=== PATIENT | female | born 1990 | race Caucasian/White ===

== ENCOUNTER 2016-09-21 17:35 | Emergency (ER) | payer OTHER ==
[2016-09-21 18:03] VITALS: RESP 16; TEMP 98.2
[2016-09-21] MEDS ORDERED: LIDOCAINE 2% JELLY 5 ML TUBE TP ONE (18:18)
--- NOTE | 2016-09-21 18:22 | EDPHY ---
H & P Stated Complaint: hemmorhoids and black stools + dizzy Time Seen by Provider: 09/21/16 17:50 HPI/ROS: CHIEF COMPLAINT: Dizziness, black stools and hemorrhoids History by patient HISTORY OF PRESENT ILLNESS: 24-year-old woman with a history of hemorrhoids presents complaining of a painful hard lump for about 4 days with associated blood on the tissue but also concerned because yesterday she had 2 episodes of soft black stool and was feeling lightheaded and dizzy like she might pass out. She had no episodes of true syncope. She has had no associated abdominal pain or vomiting but does say she feels little bit nauseated today. She denies any chest pain or trouble breathing. She has no prior history of GI bleed. She drinks occasional alcohol. She has tried some preparation H on her hemorrhoids with minimal relief. Her symptoms of dizziness and general weakness have resolved today as have the black stools and she said she had a normal stool today. REVIEW OF SYSTEMS: As in HPI, and all other systems reviewed and are negative Source: Patient - Personal History LMP (Females 10-55): Unknown Current Tetanus Diphtheria and Acellular Pertussis (TDAP): Yes - Medical/Surgical History Hx Asthma: No Hx Chronic Respiratory Disease: No Hx Diabetes: No Hx Cardiac Disease: No Hx Renal Disease: No Hx Cirrhosis: No Hx Alcoholism: No Hx HIV/AIDS: No Hx Splenectomy or Spleen Trauma: No Other PMH: none - Family History Significant Family History: No pertinent family hx - Social History Smoking Status: Current some day smoker Alcohol Use: Occasionally - Physical Exam Exam: General Appearance: Alert, well-appearing. Eyes: Pupils equal and round no pallor or injection. ENT, Mouth: Mucous membranes moist. Respiratory: Normal, effort, There are no retractions, lungs are clear to auscultation. Cardiovascular: Regular rate and rhythm. Gastrointestinal: Abdomen is soft and nontender, no masses, bowel sounds normal. Rectal: Positive tender, thrombosed external hemorrhoid at 6:00 p.m., no stool in vault Neurological: Awake, alert and oriented x 3, no pronator drift, normal gait, no pronator drift Skin: Warm and dry, no rashes. Musculoskeletal: Neck is supple nontender. Extremities are symmetrical, full range of motion. Psychiatric: Patient has normal affect, there is no agitation. Constitutional: Initial Vital Signs Temperature (C) 36.8 C 09/21/16 17:40 Heart Rate 95 09/21/16 17:40 Respiratory Rate 16 09/21/16 17:40 Blood Pressure 129/87 H 09/21/16 17:40 O2 Sat (%) 98 09/21/16 17:40 O2 Delivery Mode Room Air Allergies/Adverse Reactions: No Known Allergies Allergy (Verified 09/21/16 18:04) Home Medications: Medication Instructions Recorded Benzocaine [Anbesol] 12 alicia MM Q4 #1 bottle 09/21/16 Medical Decision Making ED Course/Re-evaluation: 24-year-old woman presents complaining of painful thrombosed hemorrhoid as well as 2 episodes of black stools and dizziness yesterday which have now resolved. Patient is hemodynamically stable and her hemoglobin is within normal limits and there is no evidence of any ongoing GI bleeding. Patient was given topical lidocaine for hemorrhoids in the emerged department with improvement in the pain. We discussed conservative measures at home including Sitz baths, benzocaine ointment, continue Preparation-H and I discussed the case with Dr. Castro, distribution lineman for surgery, who will see the patient tomorrow to excise the thrombosed hemorrhoid in her office. Patient understands and agreeable to this plan. - Data Points Laboratory Results: Laboratory Results 09/21/16 18:20 09/21/16 18:20 WBC 7.84 10^3/uL 10^3/uL (3.80-9.50) RBC 4.86 10^6/uL 10^6/uL (4.18-5.33) Hgb 16.0 g/dL g/dL (12.6-16.3) Hct 45.3 % % (38.0-47.0) MCV 93.2 fL fL (81.5-99.8) MCH 32.9 pg pg (27.9-34.1) MCHC 35.3 g/dL g/dL (32.4-36.7) RDW 11.9 % % (11.5-15.2) Plt Count 398 10^3/uL 10^3/uL (150-400) MPV 9.2 fL fL (8.7-11.7) Neut % (Auto) 57.7 % % (39.3-74.2) Lymph % (Auto) 30.1 % % (15.0-45.0) [place] % (Auto) 6.9 % % (4.5-13.0) Eos % (Auto) 4.1 % % (0.6-7.6) Baso % (Auto) 0.9 % % (0.3-1.7) Nucleat RBC Rel Count 0.0 % % (0.0-0.2) Absolute Neuts (auto) 4.53 10^3/uL 10^3/uL (1.70-6.50) Absolute Lymphs (auto) 2.36 10^3/uL 10^3/uL (1.00-3.00) Absolute Monos (auto) 0.54 10^3/uL 10^3/uL (0.30-0.80) Absolute Eos (auto) 0.32 10^3/uL 10^3/uL (0.03-0.40) Absolute Basos (auto) 0.07 10^3/uL 10^3/uL (0.02-0.10) Absolute Nucleated RBC 0.00 10^3/uL 10^3/uL (0-0.01) Immature Gran % 0.3 % % (0.0-1.1) Immature Gran # 0.02 10^3/uL 10^3/uL (0.00-0.10) Medications Given: Discontinued Medications Lidocaine (Lidocaine 2% Jelly) 1 alicia TP EDNOW ONE Stop: 09/21/16 18:19 Last Admin: 09/21/16 18:20 Dose: 1 tube Departure - Departure Disposition: Home, Routine, Self-Care Clinical Impression: Thrombosed external hemorrhoid Condition: Good Instructions: Thrombosed Hemorrhoid (ED) Additional Instructions: You were seen by Dr. Jane Juares today. Soak in a warm bath 2-3 times a day. Use benzocaine cream as needed for pain. Follow-up with Dr. Martínez, general surgery on ThursdaySeptember 22 at 1:15 p.m.. Please call her office to confirm this appointment on Thursday morning. Return for any worsening or new concerns. Referrals: NONE *PRIMARY CARE P,. [Primary Care Provider] - As per Instructions Abbey Martínez MD [Medical Doctor] - As per Instructions Prescriptions: Benzocaine [Anbesol] 12 alicia MM Q4 #1 bottle
[2016-09-21 18:25] LABS: % IMMATURE GRANULYOCYTES 0.3 % (0.0-1.1); ABSOLUTE IMMATURE GRANULOCYTES 0.02 10^3/uL (0.00-0.10); ADD DIFF? NO; ADD MORPH? NO; ADD SCAN? NO; ATYPICAL LYMPHOCYTE FLAG 10 (0-99); FRAGMENT RBC FLAG 0 (0-99); HEMATOCRIT 45.3 % (38.0-47.0); LEFT SHIFT FLG 0 (0-99); LIPEMIA HEMOLYSIS FLAG 90 (0-99); MEAN CELL HEMOGLOBIN 32.9 pg (27.9-34.1); MEAN CELL HEMOGLOBIN CONCENTR. 35.3 g/dL (32.4-36.7); MEAN CELL VOLUME 93.2 fL (81.5-99.8); MEAN PLATELET VOLUME 9.2 fL (8.7-11.7); PLATELET CLUMPS FLAG 0 (0-99); PLATELET COUNT 398 10^3/uL (150-400); RED BLOOD CELL COUNT 4.86 10^6/uL (4.18-5.33); RED CELL DISTRIBUTION WIDTH 11.9 % (11.5-15.2)
[2016-09-21 19:08] VITALS: BP 118/81; PULSE 98; O2SAT 96
== END 2016-09-21 19:06 | disposition home or self-care (01) ==
LOC: CED 17:35
DX: K64.5 Perianal venous thrombosis (principal); F17.200 Nicotine dependence, unspecified, uncomplicated
CPT/HCPCS: 85025-PO